=== PATIENT | female | born 1950 | race African-American/Black ===

== ENCOUNTER 2016-09-09 22:42 | Emergency (ER) | payer BC, MEDICARE, OTHER ==
--- NOTE | 2016-09-09 23:12 | ER Document Report ---
ED General - General Stated Complaint: UNRESPONSIVE Notes: Patient is a 66 year old male who presents with complaint of becoming unresponsive after an or edema with her children. She says that she's become unresponsive after emotional stress the past. This is nothing new. She is also given Narcan by the paramedics. Patient had a Percocet earlier. She says that it is just 1 Percocet. She denies any alcohol use. She currently feels well and has no further complaints. She denies any focal neurologic deficits. She denies any trauma. Eyes headache. - Related Data Allergies/Adverse Reactions: No Known Allergies Allergy (Verified 11/09/12 15:04) Past Medical History - Social History Smoking Status: Never Smoker Frequency of alcohol use: None Drug Abuse: None Family History: Reviewed & Not Pertinent - Past Medical History Cardiac Medical History: Reports: Hx Heart Attack, Hx Hypertension - medicated Denies: Hx Coronary Artery Disease Pulmonary Medical History: Reports: Hx Bronchitis Denies: Hx Asthma, Hx COPD, Hx Pneumonia Neurological Medical History: Denies: Hx Cerebrovascular Accident, Hx Seizures Endocrine Medical History: Denies: Hx Diabetes Mellitus Type 2 Malignancy Medical History: Reports: Hx Breast Cancer GI Medical History: Denies: Hx Gastritis, Hx Gastroesophageal Reflux Disease, Hx Hepatitis, Hx Hiatal Hernia, Hx Ulcer Musculoskeltal Medical History: Reports Hx Arthritis Infectious Medical History: Denies: Hx Hepatitis Past Surgical History: Reports: Hx Breast Surgery - Left lumpectomy, Hx Tubal Ligation. Denies: Hx Hysterectomy, Hx Mastectomy, Hx Open Heart Surgery, Hx Pacemaker - Immunizations Hx Diphtheria, Pertussis, Tetanus Vaccination: Yes Hx Pneumococcal Vaccination: 08/01/08 Review of Systems - Review of Systems Notes: My Normal Review Basic REVIEW OF SYSTEMS: CONSTITUTIONAL : Denies fever, chills, or sweats. Denies recent illness. EENT: Denies eye, ear, throat, or mouth pain or symptoms. Denies nasal or sinus congestion. CARDIOVASCULAR: Denies chest pain. RESPIRATORY: Denies cough, cold, or chest congestion. Denies shortness of breath, difficulty breathing, or wheezing. GASTROINTESTINAL: Denies abdominal pain. Denies nausea, vomiting, or diarrhea. Denies constipation. MUSCULOSKELETAL: Denies neck or back pain or joint pain or swelling. SKIN: Denies rash or skin lesions. HEMATOLOGIC : Denies easy bruising or bleeding. LYMPHATIC: Denies swollen, enlarged glands. NEUROLOGICAL: Syncope ALL OTHER SYSTEMS REVIEWED AND NEGATIVE. Physical Exam - Vital signs Vitals: Temp Pulse Resp BP Pulse Ox 97.5 F 74 16 118/75 97 09/09/16 22:53 09/09/16 22:53 09/09/16 22:53 09/09/16 22:53 09/09/16 22:53 - Notes Notes: General Appearance: Well nourished, alert, cooperative, no acute distress, no obvious discomfort. Well-appearing Vitals: reviewed, See vital signs table. Head: no swelling or tenderness to the head Eyes: PERRL, EOMI, Conjuctiva clear Mouth: No decreasd moisture Throat: No tonsillar inflammation, No airway obstruction, No lymphadenopathy Neck: Supple, no neck tenderness, No thyromegaly Lungs: No wheezing, No rales, No rhonci, No accessory muscle use, good air exchange bilaterally. Heart: Normal rate, Regular rythm, No murmur, no rub Abdomen: Normal BS, soft, No rigidity, No abdominal tenderness, No guarding, no rebound, no abdominal masses, no organomegaly Extremities: strength 5/5 in all extremities, good pulses in all extremities, no swelling or tenderness in the extremities, no edema. Skin: warm, dry, appropriate color, no rash Neuro: speech clear, oriented x 3, normal affect, responds appropriately to questions. Cranial nerves II through XII are intact. Distal sensation intact. Patient moves all extremities without difficulty. Course - Vital Signs Vital signs: Temp Pulse Resp BP Pulse Ox 97.5 F 74 13 113/76 98 09/09/16 22:53 09/09/16 22:53 09/09/16 23:04 09/09/16 23:04 09/09/16 23:04 - Laboratory Result Diagrams: 09/09/16 23:09 09/09/16 23:09 Laboratory results interpreted by me: 09/09/16 09/09/16 23:09 23:09 Sodium 135.8 L Glucose 130 H Ur Leukocyte Esterase SMALL H Salicylates < 1.0 L Acetaminophen < 10 L - EKG Interpretation by Me Additional EKG results interpreted by me: 09/09/16 23:11 EKG is reviewed and interpreted by me. EKG shows a sinus rhythm with rate of [address] segment elevation or depression. No ischemic T wave inversions. WV interval, QRS duration, QTC intervals are within normal range. Old EKG for comparison is from 02/14/2013. - Transfer of Care Notes: 09/10/16 01:18 Patient is sitting at bedside with family. They said that they have recent in the family and that a few ventricular call tonight and got emotional argument Patient passed out. She's been awake and alert. She has no neurologic deficits. CT scan of the head was negative. She had no chest pain. Her labs are negative except for the high alcohol level. She looks and feels much improved. There is a sober family member at bedside who will drive her home. I encouraged him to return to ER immediately if she has recurrent cecal episodes , chest pain, headache, or she feels unwell. Patient agrees with plan and will be discharged home. Dictation of this chart was performed using voice recognition software; therefore, there may be some unintended grammatical errors. Discharge - Discharge Clinical Impression: Alcohol intoxication Qualifiers: Complication of substance-induced condition: uncomplicated Qualified Code(s): F10.120 - Alcohol abuse with intoxication, uncomplicated Syncope Qualifiers: Syncope type: unspecified Qualified Code(s): R55 - Syncope and collapse Condition: Good Disposition: HOME, SELF-CARE Additional Instructions: Please do not drink large amounts of alcohol. Please return to the ER if you have recurrent episodes of passing out, fevers, chest pain, headache, or feel unwell. Referrals: LARON GARRIDO MD [Primary Care Provider] - Follow up in 3-5 days
[2016-09-09 23:25] LABS: ABSOLUTE EOSINOPHILS # (AUTO) 0.2 10^3/uL (0.0-0.6); ABSOLUTE LYMPHOCYTES (AUTO) 1.6 10^3/uL (0.5-4.7); ABSOLUTE MONOCYTES (AUTO) 0.5 10^3/uL (0.1-1.4); ABSOLUTE NEUT (AUTO) 2.1 10^3/uL (1.7-8.2); BASOPHILS % (AUTO) 0.7 % (0-2); EOSINOPHILS % (AUTO) 4.3 % (0-6); HEMOGLOBIN 12.2 g/dL (12.0-15.5); HGB HCT DIFFERENCE 0.6; LYMPHOCYTES % (AUTO) 35.6 % (13-45); MEAN CORPUSCULAR HEMOGLOBIN 31.7 pg (27.0-33.4); MEAN CORPUSCULAR HGB CONC 33.8 g/dL (32.0-36.0); MEAN CORPUSCULAR VOLUME 94 fl (80-97); MONOCYTES % (AUTO) 11.7 % (3-13); RED BLOOD COUNT 3.85 10^6/uL (3.72-5.28); RED CELL DISTRIBUTION WIDTH 13.9 % (11.5-14.0); SEGMENTED NEUTROPHILS % (AUTO) 47.7 % (42-78); WHITE BLOOD COUNT 4.4 10^3/uL (4.0-10.5)
[2016-09-09 23:36] LABS: ALANINE AMINOTRANSFERASE 18 U/L (9-52); ALBUMIN 4.1 g/dL (3.5-5.0); ALCOHOL 251 mg/dL (NONE DETECTED); ALKALINE PHOSPHATASE 88 U/L (38-126); ANION GAP 15 (5-19); ASPARTATE AMINO TRANSFERASE 16 U/L (14-36); BILIRUBIN,TOTAL 0.5 mg/dL (0.2-1.3); BLOOD UREA NITROGEN 8 mg/dL (7-20); CALCIUM 9.3 mg/dL (8.4-10.2); CARBON DIOXIDE 23 mmol/L (22-30); CHLORIDE 98 mmol/L (98-107); CREATININE RESULT 0.72 mg/dL (0.52-1.25); GLUCOSE 130 mg/dL (75-110); POTASSIUM 3.6 mmol/L (3.6-5.0); SODIUM 135.8 mmol/L (137-145); TOTAL PROTEIN 6.7 g/dL (6.3-8.2)
[2016-09-10] LABS: APPEARANCE,URINE SLIGHTLY-CLOUDY; BILIRUBIN,URINE NEGATIVE (NEGATIVE); GLUCOSE, URINE NEGATIVE (NEGATIVE); KETONES,URINE NEGATIVE (NEGATIVE); LEUKOCYTE ESTERASE,URINE SMALL (NEGATIVE); NITRITE,URINE NEGATIVE (NEGATIVE); PROTEIN,URINE NEGATIVE (NEGATIVE); URINE SPECIFIC GRAVITY 1.002; UROBILINOGEN,URINE NEGATIVE mg/dL (<2.0)
[2016-09-10 00:11] LABS: URINE BARBITURATES SCREEN NEGATIVE; URINE METHADONE SCREEN NEGATIVE; URINE OPIATES LOW NEGATIVE; URINE PHENCYCLIDINE SCREEN NEGATIVE
[2016-09-10 01:38] VITALS: BP 93/55
--- NOTE | 2016-09-10 08:20 | EKG REPORT ---
SEVERITY:- BORDERLINE ECG - SINUS RHYTHM BORDERLINE T ABNORMALITIES, ANT-LAT LEADS : Confirmed by: Ramsey Bear MD 10-Sep-2016 08:20:16
== END 2016-09-10 01:29 | disposition home or self-care (01) ==
LOC: ER 22:42
DX: R55 Syncope and collapse (principal); F10.120 Alcohol abuse with intoxication, uncomplicated; I10 Essential (primary) hypertension; I25.2 Old myocardial infarction; Z85.3 Personal history of malignant neoplasm of breast; Z98.51 Tubal ligation status
CPT/HCPCS: 36415; 70450; 80053; 80307; 81001; 85025; 93005; 93010; 99285

== ENCOUNTER 2018-01-27 20:32 | Emergency (ER) | payer MEDICARE ==
[2018-01-27 21:12] LABS: ABSOLUTE EOSINOPHILS # (AUTO) 0.2 10^3/uL (0.0-0.6); ABSOLUTE MONOCYTES (AUTO) 0.4 10^3/uL (0.1-1.4); ABSOLUTE NEUT (AUTO) 1.3 10^3/uL (1.7-8.2); BASOPHILS % (AUTO) 1.2 % (0-2); HEMOGLOBIN 12.7 g/dL (12.0-15.5); LYMPHOCYTES % (AUTO) 50.7 % (13-45); MEAN CORPUSCULAR HEMOGLOBIN 31.5 pg (27.0-33.4); MEAN CORPUSCULAR HGB CONC 33.5 g/dL (32.0-36.0); MEAN CORPUSCULAR VOLUME 94 fl (80-97); MONOCYTES % (AUTO) 10.4 % (3-13); PLATELET COUNT 319 10^3/uL (150-450); RED BLOOD COUNT 4.04 10^6/uL (3.72-5.28); RED CELL DISTRIBUTION WIDTH 13.9 % (11.5-14.0); SEGMENTED NEUTROPHILS % (AUTO) 32.7 % (42-78); TOTAL CELLS COUNTED % (AUTO) 100 %
[2018-01-27 21:25] LABS: ALANINE AMINOTRANSFERASE 22 U/L (9-52); ALBUMIN 4.3 g/dL (3.5-5.0); ALKALINE PHOSPHATASE 102 U/L (38-126); ANION GAP 16 (5-19); ASPARTATE AMINO TRANSFERASE 38 U/L (14-36); BILIRUBIN,DIRECT 0.2 mg/dL (0.0-0.4); BILIRUBIN,TOTAL 0.2 mg/dL (0.2-1.3); BLOOD UREA NITROGEN 4 mg/dL (7-20); CALCIUM 9.8 mg/dL (8.4-10.2); CARBON DIOXIDE 24 mmol/L (22-30); CHLORIDE 108 mmol/L (98-107); GLUCOSE 105 mg/dL (75-110); SODIUM 148.3 mmol/L (137-145); TOTAL PROTEIN 7.6 g/dL (6.3-8.2)
[2018-01-27 21:43] LABS: APPEARANCE,URINE CLEAR; BILIRUBIN,URINE NEGATIVE (NEGATIVE); COLOR,URINE COLORLESS; GLUCOSE, URINE NEGATIVE (NEGATIVE); KETONES,URINE NEGATIVE (NEGATIVE); LEUKOCYTE ESTERASE,URINE NEGATIVE (NEGATIVE); NITRITE,URINE NEGATIVE (NEGATIVE); PROTEIN,URINE NEGATIVE (NEGATIVE); UROBILINOGEN,URINE NEGATIVE mg/dL (<2.0)
--- NOTE | 2018-01-27 22:51 | ER Document Report ---
ED General - General Chief Complaint: ETOH Abuse Stated Complaint: POSSIBLE INTOXICATION Time Seen by Provider: 01/27/18 21:38 Cannot obtain history due to: Intoxicated Notes: Patient is a 67-year-old female who arrives to the emergency department by EMS intoxicated. Apparently she was stumbling into traffic, EMS was contacted and she was transported to the emergency department. The patient does not provide meaningful history as she is quite intoxicated. She does not recall the events that led to her being here in the emergency department tonight. Review of medical records shows several similar presentations in the past. TRAVEL OUTSIDE OF THE [place] IN LAST 30 DAYS: No - Related Data Allergies/Adverse Reactions: No Known Allergies Allergy (Verified 11/09/12 15:04) Past Medical History - General Information source: Emergency Med Personnel - Social History Smoking Status: Unknown if Ever Smoked Frequency of alcohol use: Heavy Drug Abuse: None Lives with: Family Family History: Reviewed & Not Pertinent Patient has suicidal ideation: No Patient has homicidal ideation: No - Past Medical History Cardiac Medical History: Reports: Hx Heart Attack, Hx Hypertension - medicated Denies: Hx Coronary Artery Disease Pulmonary Medical History: Reports: Hx Bronchitis Denies: Hx Asthma, Hx COPD, Hx Pneumonia Neurological Medical History: Denies: Hx Cerebrovascular Accident, Hx Seizures Endocrine Medical History: Denies: Hx Diabetes Mellitus Type 2 Renal/ Medical History: Denies: Hx Peritoneal Dialysis Malignancy Medical History: Reports: Hx Breast Cancer GI Medical History: Denies: Hx Gastritis, Hx Gastroesophageal Reflux Disease, Hx Hepatitis, Hx Hiatal Hernia, Hx Ulcer Musculoskeltal Medical History: Reports Hx Arthritis Infectious Medical History: Denies: Hx Hepatitis Past Surgical History: Reports: Hx Breast Surgery - Left lumpectomy, Hx Tubal Ligation. Denies: Hx Hysterectomy, Hx Mastectomy, Hx Open Heart Surgery, Hx Pacemaker - Immunizations Hx Diphtheria, Pertussis, Tetanus Vaccination: Yes Hx Pneumococcal Vaccination: 08/01/08 Review of Systems - Review of Systems Notes: Constitutional: Negative for fever. HENT: Negative for sore throat. Eyes: Negative for visual changes. Cardiovascular: Negative for chest pain. Respiratory: Negative for shortness of breath. Gastrointestinal: Negative for abdominal pain, vomiting or diarrhea. Genitourinary: Negative for dysuria. Musculoskeletal: Negative for back pain. Skin: Negative for rash. Neurological: Negative for headaches, weakness or numbness. 10 point ROS negative except as marked above and in HPI. Physical Exam - Vital signs Vitals: Temp Pulse Resp BP Pulse Ox 98.1 F 87 20 141/89 H 96 01/27/18 20:38 01/27/18 20:38 01/27/18 20:38 01/27/18 20:38 01/27/18 20:38 Interpretation: Hypertensive Notes: PHYSICAL EXAMINATION: GENERAL: No distress but obviously intoxicated HEAD: Atraumatic, normocephalic. EYES: Pupils equal round and reactive to light, extraocular movements intact, sclera anicteric, conjunctiva are normal. ENT: nares patent, oropharynx clear without exudates. Moist mucous membranes. NECK: Normal range of motion, supple without lymphadenopathy LUNGS: Breath sounds clear to auscultation bilaterally and equal. No wheezes rales or rhonchi. HEART: Regular rate and rhythm without murmurs ABDOMEN: Soft, nontender, normoactive bowel sounds. No guarding, no rebound. No masses appreciated. EXTREMITIES: Normal range of motion, no pitting or edema. No cyanosis. NEUROLOGICAL: No focal neurological deficits. Moves all extremities spontaneously and on command. PSYCH: Intoxicated SKIN: Warm, Dry, normal turgor, no rashes or lesions noted. Course - Re-evaluation Re-evalutation: 01/27/18 22:49 Patient presents with acute alcohol intoxication without any additional acute complaints. Admits to heavy alcohol use today. Smells very strongly of alcohol and has been seen in the emergency department on prior occasions for the same. No evidence of trauma on exam. Patient was monitored in the emergency department until they were clinically sober. Labs obtained in triage are noted to be overall unremarkable. Able to ambulate and talking clear sentences prior to discharge. Tolerating oral intake without difficulty. The patient has been instructed to seek help for alcohol detoxification. Will discharge and return precautions and follow-up recommendations. - Vital Signs Vital signs: Temp Pulse Resp BP Pulse Ox 97.9 F 87 20 134/89 H 99 01/27/18 23:07 01/27/18 23:07 01/27/18 23:07 01/27/18 23:07 01/27/18 23:07 - Laboratory Result Diagrams: 01/27/18 20:56 01/27/18 20:56 Laboratory results interpreted by me: 01/27/18 01/27/18 20:56 20:56 Seg Neutrophils % 32.7 L Lymphocytes % 50.7 H Absolute Neutrophils 1.3 L Sodium 148.3 H Chloride 108 H BUN 4 L AST 38 H Discharge - Discharge Clinical Impression: Confusion Alcohol intoxication Qualifiers: Complication of substance-induced condition: uncomplicated Qualified Code(s): F10.920 - Alcohol use, unspecified with intoxication, uncomplicated Condition: Good Disposition: HOME, SELF-CARE Additional Instructions: You were seen in the emergency department today for trying to walk into traffic after drinking alcohol. Being seen in the emergency department after drinking alcohol is a serious indicator that you have a problem with alcohol. Please return to the emergency room immediately if you experience any concerning symptoms including high fevers, severe headache, chest pain, difficulty breathing, abdominal pain, slurred speech, numbness or weakness in your arms or legs, or any other symptom that concerns you. Referrals: LARON GARRIDO MD [Primary Care Provider] - Follow up as needed
[2018-01-27 23:27] VITALS: BP 134/89
--- NOTE | 2018-01-28 00:18 | EKG REPORT ---
SEVERITY:- ABNORMAL ECG - SINUS RHYTHM LEFT VENTRICULAR HYPERTROPHY : Confirmed by: Joyce Brar MD 28-Jan-2018 00:18:08
== END 2018-01-27 23:10 | disposition home or self-care (01) ==
LOC: ER 20:32
DX: F10.920 Alcohol use, unspecified with intoxication, uncomplicated (principal); R41.0 Disorientation, unspecified; I10 Essential (primary) hypertension; I25.2 Old myocardial infarction; Z98.51 Tubal ligation status
CPT/HCPCS: 36415; 80053; 81001; 85025; 93005; 93010; 99284

== ENCOUNTER 2018-06-27 06:17 | Observation (INO) | payer MEDICARE ==
[2018-06-27 06:43] LABS: ABSOLUTE BASOPHILS # (AUTO) 0.1 10^3/uL (0.0-0.2); ABSOLUTE LYMPHOCYTES (AUTO) 1.5 10^3/uL (0.5-4.7); ABSOLUTE MONOCYTES (AUTO) 0.6 10^3/uL (0.1-1.4); ABSOLUTE NEUT (AUTO) 4.8 10^3/uL (1.7-8.2); BASOPHILS % (AUTO) 0.8 % (0-2); EOSINOPHILS % (AUTO) 0.7 % (0-6); HEMATOCRIT 32.9 % (36.0-47.0); HEMOGLOBIN 11.1 g/dL (12.0-15.5); MEAN CORPUSCULAR HEMOGLOBIN 32.7 pg (27.0-33.4); MEAN CORPUSCULAR HGB CONC 33.8 g/dL (32.0-36.0); MEAN CORPUSCULAR VOLUME 97 fl (80-97); MONOCYTES % (AUTO) 8.8 % (3-13); PLATELET COUNT 193 10^3/uL (150-450); RED CELL DISTRIBUTION WIDTH 14.9 % (11.5-14.0); SEGMENTED NEUTROPHILS % (AUTO) 68.7 % (42-78); TOTAL CELLS COUNTED % (AUTO) 100 %
--- NOTE | 2018-06-27 06:47 | ER Document Report ---
ED General - General Chief Complaint: Altered Mental Status Stated Complaint: ALTERED MENTAL STATUS Time Seen by Provider: 06/27/18 06:29 Notes: Patient is a 68-year-old female that presents to the emergency department for chief complaint of altered mental status. History provided by the patient's daughter who is at bedside. She states that the patient has been having mental decline over the last 10 months, but was less responsive this morning, for approximately 10 minutes until EMS arrived. Patient's daughter states that the patient has been hanging around another man, that has been concerning the patient's daughter, they have been trying to contact police, because she has been acting abnormal, leaving the house, but at those times she was alert and oriented, at this time the patient is not able to give me her last name, or her birthday. Daughter is also concerned she may be having dementia as well. Past Medical History: Hypertension, chronic low back pain Past Surgical History: Breast biopsy, foot surgery Social History: No current tobacco use, daily alcohol use, no apparent illicit drug use Family History: Reviewed and noncontributory for presenting illness Allergies: Reviewed, see documented allergy list. REVIEW OF SYSTEMS: Other than noted above, the 12 point review of systems was reviewed with the patient and were negative, all pertinent findings are included in the HPI. PHYSICAL EXAMINATION: Vital signs reviewed, nursing noted reviewed. GENERAL: Elderly female, confused, but in no acute distress HEAD: Atraumatic, normocephalic. EYES: Horizontal nystagmus, extraocular movements intact, sclera anicteric, conjunctiva are normal. PERRLA ENT: nares patent, oropharynx clear without exudates. Moist mucous membranes. NECK: Normal range of motion, supple without lymphadenopathy LUNGS: Breath sounds clear to auscultation bilaterally and equal. No wheezes rales or rhonchi. HEART: Heart rate tachycardic, regular rhythm, no audible murmurs ABDOMEN: Soft, nontender, normoactive bowel sounds. No rebound, guarding, or rigidity. No masses appreciated. EXTREMITIES: Nontender, good range of motion, no pitting or edema. NEUROLOGICAL: Alert and oriented only to self on initial exam. otherwise No focal neurological deficits. Moves all extremities spontaneously Motor and sensory grossly intact on exam. PSYCH: Flat affect, confused, alert, but oriented only to self. SKIN: Warm, Dry, normal turgor, no rashes or lesions noted on exposed skin TRAVEL OUTSIDE OF THE [place] IN LAST 30 DAYS: No - Related Data Allergies/Adverse Reactions: No Known Allergies Allergy (Verified 11/09/12 15:04) Past Medical History - Social History Smoking Status: Current Every Day Smoker Frequency of alcohol use: Heavy Family History: Reviewed & Not Pertinent Patient has suicidal ideation: No Patient has homicidal ideation: No - Past Medical History Cardiac Medical History: Reports: Hx Heart Attack, Hx Hypertension - medicated Denies: Hx Coronary Artery Disease Pulmonary Medical History: Reports: Hx Bronchitis Denies: Hx Asthma, Hx COPD, Hx Pneumonia Neurological Medical History: Denies: Hx Cerebrovascular Accident, Hx Seizures Endocrine Medical History: Denies: Hx Diabetes Mellitus Type 2 Renal/ Medical History: Denies: Hx Peritoneal Dialysis Malignancy Medical History: Reports: Hx Breast Cancer GI Medical History: Denies: Hx Gastritis, Hx Gastroesophageal Reflux Disease, Hx Hepatitis, Hx Hiatal Hernia, Hx Ulcer Musculoskeletal Medical History: Reports Hx Arthritis Infectious Medical History: Denies: Hx Hepatitis Past Surgical History: Reports: Hx Breast Surgery - Left lumpectomy, Hx Tubal Ligation. Denies: Hx Hysterectomy, Hx Mastectomy, Hx Open Heart Surgery, Hx Pacemaker - Immunizations Hx Diphtheria, Pertussis, Tetanus Vaccination: Yes Hx Pneumococcal Vaccination: 08/01/08 Physical Exam - Vital signs Vitals: Temp 98.6 F 06/27/18 06:29 Course - Re-evaluation Re-evalutation: Patient seen and examined vital signs reviewed. Laboratory data and imaging were ordered as appropriate for the patient's presenting symptoms and complaint, with consideration of any critical or life threatening conditions that may be associated with their obtained history and exam as noted above. Patient was treated with IV fluids x 2L Results were reviewed when available and demonstrated elevated lactic acid with no obvious source of infection, no abdominal pain. The rest of the patients workup was essentially unremarkable, including ammonia level, ABG, TSH, tox screen and UA, and negative CT head. The patient was re-evaluated and was still encephalopathic, given the patients chronic alcohol consumption, I felt the patient maybe having Wernicke's encephalopathy, and therefore ordered IV thiamine 100mg infusion and felt the patient need further evaluation and monitoring. After thiamine the patient did improve back to her baseline per family. Evaluation was most consistent with acute encephalopathy, suspect wernicke's Results were discussed with the patient and her daughter at this point after careful consideration I feel that that patient should be admitted to the hospital. This was discussed with the patient that it is in the best interest for their care to be admitted for further evaluation and management. Patient and patient daughter agreed with this plan of care. A call was placed to the admitted physician, Dr. Barry who graciously accepted the patient onto their service. *Note is created using voice recognition software and may contain spelling, syntax or grammatical errors. Laboratory 06/27/18 06/27/18 06/27/18 06:33 06:33 06:33 WBC 7.0 RBC 3.40 L Hgb 11.1 L Hct 32.9 L MCV 97 MCH 32.7 MCHC 33.8 RDW 14.9 H Plt Count 193 Seg Neutrophils % 68.7 Lymphocytes % 21.0 Monocytes % 8.8 Eosinophils % 0.7 Basophils % 0.8 Absolute Neutrophils 4.8 Absolute Lymphocytes 1.5 Absolute Monocytes 0.6 Absolute Eosinophils 0.0 Absolute Basophils 0.1 PT 13.6 INR 0.99 Carbonic Acid HCO3/H2CO3 Ratio ABG pH ABG pCO2 ABG pO2 ABG HCO3 ABG Total CO2 ABG O2 Saturation ABG Base Excess VBG pH VBG pCO2 VBG HCO3 VBG Base Excess FiO2 Sodium 139.4 Potassium 4.4 Chloride 104 Carbon Dioxide 22 Anion Gap 13 BUN 10 Creatinine 0.64 Est GFR ( Amer) > 60 Est GFR (Non-Af Amer) > 60 Glucose 200 H Lactic Acid Calcium 9.5 Total Bilirubin 0.9 Direct Bilirubin 0.3 Neonat Total Bilirubin Not Reportable Neonat Direct Bilirubin Not Reportable Neonat Indirect Bili Not Reportable AST 49 H ALT 28 Alkaline Phosphatase 104 Ammonia Troponin I Total Protein 7.0 Albumin 3.9 TSH Urine Color Urine Appearance Urine pH Ur Specific [place] Urine Protein Urine Glucose (UA) Urine Ketones Urine Blood Urine Nitrite Urine Bilirubin Urine Urobilinogen Ur Leukocyte Esterase Urine WBC (Auto) Urine RBC (Auto) U Hyaline Cast (Auto) Squamous Epi Cells Auto Urine Mucus (Auto) Urine Ascorbic Acid Salicylates < 1.0 L Urine Opiates Screen Urine Methadone Screen Acetaminophen < 10 L Ur Barbiturates Screen Ur Phencyclidine Scrn Ur Amphetamines Screen U Benzodiazepines Scrn Urine Cocaine Screen U Marijuana (THC) Screen Serum Alcohol < 10 06/27/18 06/27/18 06/27/18 06:33 06:33 06:33 WBC RBC Hgb Hct MCV MCH MCHC RDW Plt Count Seg Neutrophils % Lymphocytes % Monocytes % Eosinophils % Basophils % Absolute Neutrophils Absolute Lymphocytes Absolute Monocytes Absolute Eosinophils Absolute Basophils PT INR Carbonic Acid HCO3/H2CO3 Ratio ABG pH ABG pCO2 ABG pO2 ABG HCO3 ABG Total CO2 ABG O2 Saturation ABG Base Excess VBG pH VBG pCO2 VBG HCO3 VBG Base Excess FiO2 Sodium Potassium Chloride Carbon Dioxide Anion Gap BUN Creatinine Est GFR ( Amer) Est GFR (Non-Af Amer) Glucose Lactic Acid 4.0 H Calcium Total Bilirubin Direct Bilirubin Neonat Total Bilirubin Neonat Direct Bilirubin Neonat Indirect Bili AST ALT Alkaline Phosphatase Ammonia Troponin I < 0.012 Total Protein Albumin TSH 2.88 Urine Color Urine Appearance Urine pH Ur Specific [place] Urine Protein Urine Glucose (UA) Urine Ketones Urine Blood Urine Nitrite Urine Bilirubin Urine Urobilinogen Ur Leukocyte Esterase Urine WBC (Auto) Urine RBC (Auto) U Hyaline Cast (Auto) Squamous Epi Cells Auto Urine Mucus (Auto) Urine Ascorbic Acid Salicylates Urine Opiates Screen Urine Methadone Screen Acetaminophen Ur Barbiturates Screen Ur Phencyclidine Scrn Ur Amphetamines Screen U Benzodiazepines Scrn Urine Cocaine Screen U Marijuana (THC) Screen Serum Alcohol 06/27/18 06/27/18 06/27/18 08:17 08:17 09:35 WBC RBC Hgb Hct MCV MCH MCHC RDW Plt Count Seg Neutrophils % Lymphocytes % Monocytes % Eosinophils % Basophils % Absolute Neutrophils Absolute Lymphocytes Absolute Monocytes Absolute Eosinophils Absolute Basophils PT INR Carbonic Acid HCO3/H2CO3 Ratio ABG pH ABG pCO2 ABG pO2 ABG HCO3 ABG Total CO2 ABG O2 Saturation ABG Base Excess VBG pH 7.44 H VBG pCO2 38.9 VBG HCO3 25.7 VBG Base Excess 1.5 FiO2 Sodium Potassium Chloride Carbon Dioxide Anion Gap BUN Creatinine Est GFR ( Amer) Est GFR (Non-Af Amer) Glucose Lactic Acid Calcium Total Bilirubin Direct Bilirubin Neonat Total Bilirubin Neonat Direct Bilirubin Neonat Indirect Bili AST ALT Alkaline Phosphatase Ammonia 13.8 Troponin I Total Protein Albumin TSH Urine Color YELLOW Urine Appearance SLIGHTLY-CLOUDY Urine pH 5.0 Ur Specific [place] 1.019 Urine Protein 30 H Urine Glucose (UA) 50 H Urine Ketones TRACE H Urine Blood NEGATIVE Urine Nitrite NEGATIVE Urine Bilirubin NEGATIVE Urine Urobilinogen NEGATIVE Ur Leukocyte Esterase NEGATIVE Urine WBC (Auto) 0 Urine RBC (Auto) 0 U Hyaline Cast (Auto) 1 Squamous Epi Cells Auto 1 Urine Mucus (Auto) OCC Urine Ascorbic Acid NEGATIVE Salicylates Urine Opiates Screen Urine Methadone Screen Acetaminophen Ur Barbiturates Screen Ur Phencyclidine Scrn Ur Amphetamines Screen U Benzodiazepines Scrn Urine Cocaine Screen U Marijuana (THC) Screen Serum Alcohol 06/27/18 06/27/18 06/27/18 09:35 10:17 12:50 WBC RBC Hgb Hct MCV MCH MCHC RDW Plt Count Seg Neutrophils % Lymphocytes % Monocytes % Eosinophils % Basophils % Absolute Neutrophils Absolute Lymphocytes Absolute Monocytes Absolute Eosinophils Absolute Basophils PT INR Carbonic Acid 1.04 L HCO3/H2CO3 Ratio 20:1 ABG pH 7.40 ABG pCO2 34.6 L ABG pO2 115.5 H ABG HCO3 21.1 ABG Total CO2 22.2 ABG O2 Saturation 98.3 H ABG Base Excess -3.1 VBG pH VBG pCO2 VBG HCO3 VBG Base Excess FiO2 2 L Sodium Potassium Chloride Carbon Dioxide Anion Gap BUN Creatinine Est GFR ( Amer) Est GFR (Non-Af Amer) Glucose Lactic Acid 0.7 Calcium Total Bilirubin Direct Bilirubin Neonat Total Bilirubin Neonat Direct Bilirubin Neonat Indirect Bili AST ALT Alkaline Phosphatase Ammonia Troponin I Total Protein Albumin TSH Urine Color Urine Appearance Urine pH Ur Specific [place] Urine Protein Urine Glucose (UA) Urine Ketones Urine Blood Urine Nitrite Urine Bilirubin Urine Urobilinogen Ur Leukocyte Esterase Urine WBC (Auto) Urine RBC (Auto) U Hyaline Cast (Auto) Squamous Epi Cells Auto Urine Mucus (Auto) Urine Ascorbic Acid Salicylates Urine Opiates Screen NEGATIVE Urine Methadone Screen NEGATIVE Acetaminophen Ur Barbiturates Screen NEGATIVE Ur Phencyclidine Scrn NEGATIVE Ur Amphetamines Screen NEGATIVE U Benzodiazepines Scrn NEGATIVE Urine Cocaine Screen NEGATIVE U Marijuana (THC) Screen NEGATIVE Serum Alcohol Chest X-Ray 06/27/18 06:29 IMPRESSION: No acute cardiopulmonary process 2010 [employer]- All Rights Reserved Head CT 06/27/18 06:48 IMPRESSION: 1. No acute intracranial abnormality by CT criteria. This exam was performed according to our departmental dose-optimization program, which includes automated exposure control, adjustment of the mA and/or kV according to patient size and/or use of iterative reconstruction technique. - Vital Signs Vital signs: Temp Pulse Resp BP Pulse Ox 99.2 F 86 16 180/83 H 100 11/27/18 17:29 06/27/18 17:29 06/27/18 17:29 06/27/18 17:29 06/27/18 17:29 - Laboratory Result Diagrams: 06/27/18 06:33 06/27/18 06:33 Laboratory results interpreted by me: 06/27/18 06/27/18 06/27/18 06:33 06:33 06:33 RBC 3.40 L Hgb 11.1 L Hct 32.9 L RDW 14.9 H Carbonic Acid ABG pCO2 ABG pO2 ABG O2 Saturation VBG pH Glucose 200 H Lactic Acid 4.0 H AST 49 H Urine Protein Urine Glucose (UA) Urine Ketones Salicylates < 1.0 L Acetaminophen < 10 L 06/27/18 06/27/18 06/27/18 08:17 09:35 10:17 RBC Hgb Hct RDW Carbonic Acid 1.04 L ABG pCO2 34.6 L ABG pO2 115.5 H ABG O2 Saturation 98.3 H VBG pH 7.44 H Glucose Lactic Acid AST Urine Protein 30 H Urine Glucose (UA) 50 H Urine Ketones TRACE H Salicylates Acetaminophen - EKG Interpretation by Me Additional EKG results interpreted by me: EKG demonstrates sinus tachycardia with a ventricular rate of 104 bpm, borderline left axis deviation, QTC 469 ms, no significant T wave inversions, and no ST changes, this is compared with prior EKG from 01/27/2018, without much change with the exception of the tachycardia today. Discharge - Discharge Clinical Impression: Encephalopathy acute, Alcohol abuse, Elevated lactic acid level Anemia Qualifiers: Anemia type: unspecified type Qualified Code(s): D64.9 - Anemia, unspecified Condition: Stable Disposition: HOME, SELF-CARE Admitting Provider: Hospitalist - Dr. Barry Unit Admitted: Medical Floor
[2018-06-27 06:52] LABS: INTERNATIONAL RATION (INR) 0.99; PROTHROMBIN TIME 13.6 SEC (11.4-15.4)
[2018-06-27 07:00] LABS: ALANINE AMINOTRANSFERASE 28 U/L (9-52); ALBUMIN 3.9 g/dL (3.5-5.0); ALKALINE PHOSPHATASE 104 U/L (38-126); ANION GAP 13 (5-19); ASPARTATE AMINO TRANSFERASE 49 U/L (14-36); BILIRUBIN,DIRECT 0.3 mg/dL (0.0-0.4); BILIRUBIN,TOTAL 0.9 mg/dL (0.2-1.3); BLOOD UREA NITROGEN 10 mg/dL (7-20); CALCIUM 9.5 mg/dL (8.4-10.2); CARBON DIOXIDE 22 mmol/L (22-30); CHLORIDE 104 mmol/L (98-107); GLUCOSE 200 mg/dL (75-110); POTASSIUM 4.4 mmol/L (3.6-5.0); SODIUM 139.4 mmol/L (137-145)
--- NOTE | 2018-06-27 07:00 | RADIOLOGY REPORT (SQ) ---
EXAM DESCRIPTION: XR CHEST 1 VIEW COMPLETED DATE/TME: 06/27/2018 06:29 CLINICAL HISTORY: 68 years, Female, tachycardia, ams COMPARISON: None. NUMBER OF VIEWS: 1 TECHNIQUE: Portable chest LIMITATIONS: None. FINDINGS: Heart size is normal. Osteopenia. Lungs are clear. No pneumothorax IMPRESSION: No acute cardiopulmonary process 2010 [facility] [facility]- All Rights Reserved
[2018-06-27] MEDS ORDERED: NORMAL SALINE 1000 ML 1,000 ML IV ONE ×2 (07:26)
[2018-06-27 07:31] LABS: ALCOHOL < 10 mg/dL (NONE DETECTED)
[2018-06-27 07:47] LABS: ACETAMINOPHEN < 10 ug/mL (10-30); SALICYLATE < 1.0 mg/dL (2.0-20.0)
--- NOTE | 2018-06-27 07:55 | RADIOLOGY REPORT (SQ) ---
EXAM DESCRIPTION: CT HEAD WITHOUT IV CONTRAST COMPLETED DATE/TME: 06/27/2018 06:48 CLINICAL HISTORY: altered mental status COMPARISON: 09/09/2016 TECHNIQUE: Axial CT of the head obtained from the skull apex to the skull base without contrast. FINDINGS: No acute intracranial hemorrhage identified. No mass, mass effect, shift of the midline, abnormal extra-axial fluid collection or CT evidence of acute ischemic change identified. The ventricular system and sulcal spaces are mildly enlarged compatible with mild cerebral atrophy. Scattered areas of hypodensity throughout the supratentorial white matter are nonspecific and may be related to chronic small vessel ischemic change. Opacification of the paranasal sinuses. Mastoid air cells are well aerated. No skull fracture identified. Visualized orbits and globes are unremarkable. Atherosclerotic calcification of the intracranial internal carotid arteries. DLP: 1083.99 mGy-cm IMPRESSION: 1. No acute intracranial abnormality by CT criteria. This exam was performed according to our departmental dose-optimization program, which includes automated exposure control, adjustment of the mA and/or kV according to patient size and/or use of iterative reconstruction technique.
[2018-06-27 08:36] LABS: VENOUS BLOOD BASE EXCESS 1.5 mmol/L; VENOUS BLOOD HCO3 25.7 mmol/L (20-32); VENOUS BLOOD PCO2 38.9 mmHg (35-63); VENOUS BLOOD PH 7.44 (7.30-7.42)
[2018-06-27 09:52] LABS: APPEARANCE,URINE SLIGHTLY-CLOUDY; BILIRUBIN,URINE NEGATIVE (NEGATIVE); COLOR,URINE YELLOW; GLUCOSE, URINE 50 mg/dL (NEGATIVE); KETONES,URINE TRACE mg/dL (NEGATIVE); LEUKOCYTE ESTERASE,URINE NEGATIVE (NEGATIVE); NITRITE,URINE NEGATIVE (NEGATIVE); PROTEIN,URINE 30 mg/dL (NEGATIVE); URINE SPECIFIC GRAVITY 1.019; UROBILINOGEN,URINE NEGATIVE mg/dL (<2.0)
[2018-06-27 10:17] LABS: URINE AMPHETAMINES SCREEN NEGATIVE; URINE BARBITURATES SCREEN NEGATIVE; URINE BENZODIAZEPINES SCREEN NEGATIVE; URINE COCAINE SCREEN NEGATIVE; URINE MARIJUANA (THC) SCREEN NEGATIVE; URINE METHADONE SCREEN NEGATIVE; URINE PHENCYCLIDINE SCREEN NEGATIVE
[2018-06-27 10:40] LABS: ARTERIAL BLOOD BASE EXCESS -3.1 mmol/L; ARTERIAL BLOOD FIO2 2 L; ARTERIAL BLOOD H2CO3 1.04 mmol/L (1.05-1.35); ARTERIAL BLOOD HCO3 21.1 mmol/L (20-24); ARTERIAL BLOOD O2 SATURATION 98.3 % (94-98); ARTERIAL BLOOD PCO2 34.6 mmHg (35-45); ARTERIAL BLOOD PO2 115.5 mmHg (80-100); ARTERIAL BLOOD TOTAL CO2 22.2 mmol/L (21-25)
[2018-06-27] MEDS ORDERED: THIAMINE HCL 100 MG in NORMAL SALINE 50 ML IV ONE (10:44)
[2018-06-27] MEDS ORDERED: RINGERS SOLUTION,LACTATED 1,000 ML IV PRN (11:05)
[2018-06-27] MEDS ORDERED: ACETAMINOPHEN 325 MG TABLET PO PRN (11:05)
[2018-06-27] MEDS ORDERED: MAGNESIUM HYDROXIDE SUSP 30 ML UDCUP PO PRN (11:05)
[2018-06-27] MEDS ORDERED: ONDANSETRON 4 MG TAB.RAPDIS PO PRN (11:05)
[2018-06-27] MEDS ORDERED: IPRATROPIUM/ALBUTEROL 0.5-2.5 MG/3 ML AMPUL NEB PRN (11:05)
[2018-06-27] MEDS ORDERED: THIAMINE HCL INJ 200 MG/2 ML VIAL ONE (11:32)
[2018-06-27] MEDS ORDERED: ENOXAPARIN SODIUM INJ 40 MG/0.4 ML DISP.SYRIN SUBCUT SCH (13:00)
--- NOTE | 2018-06-27 13:35 | EKG REPORT ---
SEVERITY:- BORDERLINE ECG - SINUS TACHYCARDIA ATRIAL PREMATURE COMPLEX BORDERLINE LEFT AXIS DEVIATION BORDERLINE T ABNORMALITIES, INFERIOR LEADS : Confirmed by: Ramsey Bear MD 27-Jun-2018 13:34:27
[2018-06-27] MEDS ORDERED: HYDRALAZINE HCL INJ/PF 20 MG/1 ML SDV IV PRN (14:00)
--- NOTE | 2018-06-27 16:55 | PDOC H&P ---
History of Present Illness Admission Date/PCP: 06/27/18 13:04 LARON RADHIKA Patient complains of: Confusion History of Present Illness: MODESTA RINALDI is a 68 year old female who presents to the emergency room with change in mental status. She was apparently confused initially and her family was concerned and so she was brought to the emergency room. Further discussions and injury of her daughter suggest that this has been an ongoing problem for at least 10 months however he did seem to get acutely worse over the last 24-48 hours. There was no headache nausea vomiting. Although workup done in the emergency room only revealed an isolated elevated lactic acid level admission was been sort due to baseline worsening confusion. Past Medical History Cardiac Medical History: Reports: Myocardial Infarction, Hypertension - medicated Denies: Coronary Artery Disease Pulmonary Medical History: Reports: Bronchitis Denies: Asthma, Chronic Obstructive Pulmonary Disease (COPD), Pneumonia Neurological Medical History: Denies: Seizures Endocrine Medical History: Denies: Diabetes Mellitus Type 2 Malignancy Medical History: Reports: Breast Cancer GI Medical History: Denies: Gastroesophageal Reflux Disease, Hepatitis, Hiatal Hernia Musculoskeltal Medical History: Reports: Arthritis Hematology: Denies: Anemia, Sickle Cell Disease Past Surgical History Past Surgical History: Reports: Tubal Ligation Denies: Amputation, Hysterectomy, Mastectomy, Pacemaker Social History Lives with: Family Smoking Status: Current Every Day Smoker Frequency of Alcohol Use: Heavy Last Alcohol Use: 06/26/18 - Advance Directive Resuscitation Status: Full Code Family History Family History: Reviewed & Not Pertinent Parental Family History Reviewed: No Children Family History Reviewed: Unknown Sibling(s) Family History Reviewed.: Unknown Medication/Allergy Home Medications: Thiamine HCl [Thiamine 100 mg Tablet] 100 mg PO DAILY #30 tablet 06/27/18 Allergies/Adverse Reactions: No Known Allergies Allergy (Verified 11/09/12 15:04) Review of Systems Constitutional: ABSENT: chills, fever(s), headache(s), weight gain, weight loss Eyes: ABSENT: visual disturbances Cardiovascular: ABSENT: chest pain, dyspnea on exertion, edema, orthropnea, palpitations Respiratory: ABSENT: cough, hemoptysis Gastrointestinal: ABSENT: abdominal pain, constipation, diarrhea, hematemesis, hematochezia, nausea, vomiting Genitourinary: ABSENT: dysuria, hematuria Neurological: PRESENT: confusion, memory loss Endocrine: ABSENT: cold intolerance, heat intolerance, polydipsia, polyuria Physical Exam Vital Signs: Temp Pulse Resp BP Pulse Ox 98.6 F 22 H 177/96 H 93 06/27/18 06:29 06/27/18 15:00 06/27/18 12:01 06/27/18 15:00 General appearance: PRESENT: no acute distress, well-developed, well-nourished Head exam: PRESENT: atraumatic, normocephalic Eye exam: PRESENT: conjunctiva pink, EOMI, PERRLA. ABSENT: scleral icterus Ear exam: PRESENT: normal external ear exam Mouth exam: PRESENT: moist, tongue midline Neck exam: ABSENT: carotid bruit, JVD, lymphadenopathy, thyromegaly Respiratory exam: PRESENT: clear to auscultation michael. ABSENT: rales, rhonchi, wheezes Cardiovascular exam: PRESENT: RRR. ABSENT: diastolic murmur, rubs, systolic murmur Pulses: PRESENT: normal dorsalis pedis pul Vascular exam: PRESENT: normal capillary refill GI/Abdominal exam: PRESENT: normal bowel sounds, soft. ABSENT: distended, guarding, mass, organolmegaly, rebound, tenderness Rectal exam: PRESENT: deferred Extremities exam: PRESENT: full ROM. ABSENT: calf tenderness, clubbing, pedal edema Neurological exam: PRESENT: alert, awake, CN II-XII grossly intact, other - confused. ABSENT: motor sensory deficit Psychiatric exam: PRESENT: appropriate affect, normal mood. ABSENT: homicidal ideation, suicidal ideation Skin exam: PRESENT: dry, intact, warm. ABSENT: cyanosis, rash Results Laboratory Results: 06/27/18 06:33 06/27/18 06:33 MCV 97 fl (80-97) 06/27/18 06:33 MCH 32.7 pg (27.0-33.4) 06/27/18 06:33 MCHC 33.8 g/dL (32.0-36.0) 06/27/18 06:33 RDW 14.9 % (11.5-14.0) H 06/27/18 06:33 Seg Neutrophils % 68.7 % (42-78) 06/27/18 06:33 Lymphocytes % 21.0 % (13-45) 06/27/18 06:33 Monocytes % 8.8 % (3-13) 06/27/18 06:33 Eosinophils % 0.7 % (0-6) 06/27/18 06:33 Basophils % 0.8 % (0-2) 06/27/18 06:33 Absolute Neutrophils 4.8 10^3/uL (1.7-8.2) 06/27/18 06:33 Absolute Lymphocytes 1.5 10^3/uL (0.5-4.7) 06/27/18 06:33 Absolute Monocytes 0.6 10^3/uL (0.1-1.4) 06/27/18 06:33 Absolute Eosinophils 0.0 10^3/uL (0.0-0.6) 06/27/18 06:33 Absolute Basophils 0.1 10^3/uL (0.0-0.2) 06/27/18 06:33 Carbonic Acid 1.04 mmol/L (1.05-1.35) L 06/27/18 10:17 HCO3/H2CO3 Ratio 20:1 06/27/18 10:17 ABG pH 7.40 (7.35-7.45) 06/27/18 10:17 ABG pCO2 34.6 mmHg (35-45) L 06/27/18 10:17 ABG pO2 115.5 mmHg (80-100) H 06/27/18 10:17 ABG HCO3 21.1 mmol/L (20-24) 06/27/18 10:17 ABG O2 Saturation 98.3 % (94-98) H 06/27/18 10:17 ABG Base Excess -3.1 mmol/L 06/27/18 10:17 VBG pH 7.44 (7.30-7.42) H 06/27/18 08:17 VBG pCO2 38.9 mmHg (35-63) 06/27/18 08:17 VBG HCO3 25.7 mmol/L (20-32) 06/27/18 08:17 VBG Base Excess 1.5 mmol/L 06/27/18 08:17 FiO2 2 L 06/27/18 10:17 Chloride 104 mmol/L (98-107) 06/27/18 06:33 Carbon Dioxide 22 mmol/L (22-30) 06/27/18 06:33 Anion Gap 13 (5-19) 06/27/18 06:33 Est GFR ( Amer) > 60 (>60) 06/27/18 06:33 Est GFR (Non-Af Amer) > 60 (>60) 06/27/18 06:33 Glucose 200 mg/dL (75-110) H 06/27/18 06:33 Lactic Acid 0.7 mmol/L (0.7-2.1) 06/27/18 12:50 Calcium 9.5 mg/dL (8.4-10.2) 06/27/18 06:33 Total Bilirubin 0.9 mg/dL (0.2-1.3) 06/27/18 06:33 AST 49 U/L (14-36) H 06/27/18 06:33 ALT 28 U/L (9-52) 06/27/18 06:33 Alkaline Phosphatase 104 U/L (38-126) 06/27/18 06:33 Ammonia 13.8 umol/L (9-33) 06/27/18 08:17 Total Protein 7.0 g/dL (6.3-8.2) 06/27/18 06:33 Albumin 3.9 g/dL (3.5-5.0) 06/27/18 06:33 TSH 2.88 uIU/mL (0.47-4.68) 06/27/18 06:33 Urine Color YELLOW 06/27/18 09:35 Urine Appearance SLIGHTLY-CLOUDY 06/27/18 09:35 Urine pH 5.0 (5.0-9.0) 06/27/18 09:35 Ur Specific [place] 1.019 06/27/18 09:35 Urine Protein 30 mg/dL (NEGATIVE) H 06/27/18 09:35 Urine Glucose (UA) 50 mg/dL (NEGATIVE) H 06/27/18 09:35 Urine Ketones TRACE mg/dL (NEGATIVE) H 06/27/18 09:35 Urine Blood NEGATIVE (NEGATIVE) 06/27/18 09:35 Urine Nitrite NEGATIVE (NEGATIVE) 06/27/18 09:35 Ur Leukocyte Esterase NEGATIVE (NEGATIVE) 06/27/18 09:35 Urine WBC (Auto) 0 /HPF 06/27/18 09:35 Urine RBC (Auto) 0 /HPF 06/27/18 09:35 06/27/18 06:33 Troponin I < 0.012 Impressions: Chest X-Ray 06/27/18 06:29 IMPRESSION: No acute cardiopulmonary process 2010 [employer]- All Rights Reserved Head CT 06/27/18 06:48 IMPRESSION: 1. No acute intracranial abnormality by CT criteria. This exam was performed according to our departmental dose-optimization program, which includes automated exposure control, adjustment of the mA and/or kV according to patient size and/or use of iterative reconstruction technique. Assessment & Plan - Diagnosis (1) Elevated BP without diagnosis of hypertension Is this a current diagnosis for this admission?: Yes Plan: F/u as outpatient (2) Elevated lactic acid level Is this a current diagnosis for this admission?: Yes Plan: No clinical significance. She has h/o ETOH abuse (3) Alcohol abuse Is this a current diagnosis for this admission?: Yes (4) Encephalopathy acute Is this a current diagnosis for this admission?: Yes Plan: Could be related to ETOH abuse - Time Time Spent: 30 to 50 Minutes Medications reviewed and adjusted accordingly: Yes Anticipated discharge: Home Within: within 24 hours - Inpatient Certification Based on my medical assessment, after consideration of the patient's comorbidities, presenting symptoms, or acuity I expect that the services needed warrant INPATIENT care.: Yes Medical Necessity: Need For IV Fluids
--- NOTE | 2018-06-27 17:10 | PDOC DISCHARGE SUMMARY ---
General - Admit/Disc Date/PCP Admission Date/Primary Care Provider: 06/27/18 13:04 LARON RADHIKA Discharge Date: 06/27/18 - Discharge Diagnosis (1) Elevated BP without diagnosis of hypertension Is this a current diagnosis for this admission?: Yes (2) Elevated lactic acid level Is this a current diagnosis for this admission?: Yes (3) Alcohol abuse Is this a current diagnosis for this admission?: Yes (4) Encephalopathy acute Is this a current diagnosis for this admission?: Yes - Additional Information Resuscitation Status: Full Code Discharge Diet: Cardiac Discharge Activity: Activity As Tolerated Prescriptions: Thiamine HCl [Thiamine 100 mg Tablet] 100 mg PO DAILY #30 tablet Home Medications: Thiamine HCl [Thiamine 100 mg Tablet] 100 mg PO DAILY #30 tablet 06/27/18 History of Present Illness History of Present Illness: MODESTA RINALDI is a 68 year old female who presents to the emergency room with change in mental status. She was apparently confused initially and her family was concerned and so she was brought to the emergency room. Further discussions and injury of her daughter suggest that this has been an ongoing problem for at least 10 months however he did seem to get acutely worse over the last 24-48 hours. There was no headache nausea vomiting. Although workup done in the emergency room only revealed an isolated elevated lactic acid level admission was been sort due to baseline worsening confusion. Hospital Course Hospital Course: Patient was admitted for observation but she actually spent hospital stay in the emergency room and by the time I saw the patient was back to baseline according to her daughter. She is still confused but her daughter says that this is her baseline and she has been like this for 10 months. Initially when she did come in she was somewhat confused but this rapidly cleared up. Did receive some IV fluids as well as thiamine in the emergency room. There is no evidence of any acute withdrawal symptoms or any acute illness. Her labs have been stable and her blood pressure while appears to be in no emergency at this time. With nothing further to offer in the hospital and patient apparently back at her baseline and family willing to take her back home am discharging her from the emergency room. I have advised her daughter that she needs to follow-up with her primary care physician for possible referral to neurology. Patient has also been advised strongly against alcohol use. Family also states that she had been living in a situation with his significant other and they just got back yesterday and it appears there is some form of family dynamics and other issues going on that we are not aware of but physically patient appears to be stable with no evidence of infection and at this time with no further acute intervention plan she is being discharged home Physical Exam Vital Signs: Temp Pulse Resp BP Pulse Ox 98.6 F 22 H 177/96 H 93 06/27/18 06:29 06/27/18 15:00 06/27/18 12:01 06/27/18 15:00 General appearance: PRESENT: no acute distress, well-developed, well-nourished Head exam: PRESENT: atraumatic, normocephalic Eye exam: PRESENT: conjunctiva pink, EOMI, PERRLA. ABSENT: scleral icterus Ear exam: PRESENT: normal external ear exam Mouth exam: PRESENT: moist, tongue midline Neck exam: ABSENT: carotid bruit, JVD, lymphadenopathy, thyromegaly Respiratory exam: PRESENT: clear to auscultation michael. ABSENT: rales, rhonchi, wheezes Cardiovascular exam: PRESENT: RRR. ABSENT: diastolic murmur, rubs, systolic murmur Pulses: PRESENT: normal dorsalis pedis pul Vascular exam: PRESENT: normal capillary refill GI/Abdominal exam: PRESENT: normal bowel sounds, soft. ABSENT: distended, guarding, mass, organolmegaly, rebound, tenderness Rectal exam: PRESENT: deferred Extremities exam: PRESENT: full ROM. ABSENT: calf tenderness, clubbing, pedal edema Neurological exam: PRESENT: alert, awake. ABSENT: motor sensory deficit Psychiatric exam: PRESENT: appropriate affect, normal mood. ABSENT: homicidal ideation, suicidal ideation Skin exam: PRESENT: dry, intact, warm. ABSENT: cyanosis, rash Results Laboratory Results: 06/27/18 06/27/18 06/27/18 06:33 06:33 06:33 RBC 3.40 L Hgb 11.1 L Hct 32.9 L RDW 14.9 H Carbonic Acid ABG pCO2 ABG pO2 ABG O2 Saturation VBG pH Glucose 200 H Lactic Acid 4.0 H AST 49 H Urine Protein Urine Glucose (UA) Urine Ketones Salicylates < 1.0 L Acetaminophen < 10 L 06/27/18 06/27/18 06/27/18 08:17 09:35 10:17 RBC Hgb Hct RDW Carbonic Acid 1.04 L ABG pCO2 34.6 L ABG pO2 115.5 H ABG O2 Saturation 98.3 H VBG pH 7.44 H Glucose Lactic Acid AST Urine Protein 30 H Urine Glucose (UA) 50 H Urine Ketones TRACE H Salicylates Acetaminophen Impressions: Chest X-Ray 06/27/18 06:29 IMPRESSION: No acute cardiopulmonary process 2010 [employer]- All Rights Reserved Head CT 06/27/18 06:48 IMPRESSION: 1. No acute intracranial abnormality by CT criteria. This exam was performed according to our departmental dose-optimization program, which includes automated exposure control, adjustment of the mA and/or kV according to patient size and/or use of iterative reconstruction technique. Qualifiers - * PATIENT BEING DISCHARGED WITH ANY OF THE FOLLOWING DIAGNOSIS: No Plan Time Spent: Less than 30 Minutes
[2018-06-27 18:32] VITALS: BP 180/83
[2018-06-28] MEDS ORDERED: DOCUSATE SODIUM 100 MG CAPSULE PO SCH (10:00)
== END 2018-06-27 17:37 | disposition home or self-care (01) ==
LOC: ER 06:17 → INTOOBSV 13:04 → EH 13:04
PROVIDERS: ADMIT Emergency Medicine; ATTEND Emergency Medicine
DX: R03.0 Elevated blood-pressure reading, without diagnosis of hypertension (principal); R74.0 Nonspecific elevation of levels of transaminase and lactic acid dehydrogenase [LDH]; F10.10 Alcohol abuse, uncomplicated; G93.40 Encephalopathy, unspecified; F17.200 Nicotine dependence, unspecified, uncomplicated; R00.0 Tachycardia, unspecified; D64.9 Anemia, unspecified; I25.2 Old myocardial infarction; Z87.898 Personal history of other specified conditions; Z85.3 Personal history of malignant neoplasm of breast; Z98.890 Other specified postprocedural states
CPT/HCPCS: 93005; 99285; 96361; 51701; 96365; 36415; 87040; 87086; 80307 ×4; 82140; 82803 ×2; 84443; 85025; 85610; 80053; 81001; 84484; 83605; 71045; 70450; 93010; J3411; J7030